=== PATIENT | male | born 1990 | race American Indian/Alaskan Native ===

== ENCOUNTER 2019-01-20 16:00 | Emergency (ER) | payer BC ==
[2019-01-20 16:11] VITALS: BP 133/72
--- NOTE | 2019-01-20 16:14 | Emergency Department Report ---
Chief Complaint: Urogenital-Male Stated Complaint: STD Time Seen by Provider: 01/20/19 16:10 - HPI History of Present Illness: Want STD check. Has penile discharge that started today. No fevers no abd pain. no pain with urination. - ROS Review of Systems: Penile discharge. No fever, no chills, no abd pain. - Exam Physical Exam: AxO times 3 . NAD, Normal gait. MSE screening note: Focused history and physical exam performed. Due to findings the following was ordered: ED Disposition for MSE Clinical Impression: Concern about STD in male without diagnosis Disposition: MED SCREENING EXAM-LEFT Is pt being admited?: No Does the pt Need Aspirin: No Condition: Stable Additional Instructions: Follow up at the health department for testing and treatment. Referrals: [facility] [Outside] - 3-5 Days [facility] [Outside] - 3-5 Days [facility] [Outside] - 3-5 Days [facility] [Outside] - 3-5 Days [facility] [Outside] - 3-5 Days
== END 2019-01-20 16:24 | disposition left against medical advice (07) ==
LOC: ED 16:00
DX: A64 Unspecified sexually transmitted disease (principal); Z53.21 Procedure and treatment not carried out due to patient leaving prior to being seen by health care provider